=== PATIENT | female | born 1990 | race Caucasian/White ===

== ENCOUNTER 2023-02-08 18:04 | Inpatient (IN) ==
[2023-02-08] MEDS ORDERED: Lactated Ringers 1000 ml BAG 1,000 ML IV ONE (18:30)
[2023-02-08] MEDS ORDERED: Lidocaine 1% VIAL 10 MG/ML 30 ML VIAL INJ PRN (18:30)
[2023-02-08] MEDS ORDERED: Promethazine INJ(RESTRICTED) 25 MG/ML 1 ml VIAL IV PRN (18:30)
[2023-02-08] MEDS ORDERED: Buffered Lidocaine 1% SYRIN 1 ml INTRADERM ONE (18:30)
[2023-02-08] MEDS ORDERED: Dinoprostone 10 MG VAG.SUPP VAGINAL ONE (18:30)
[2023-02-08 19:44] LABS: Hemoglobin 13.8 g/dL (11.5-14.3); Mean Corpuscular Hemoglobin 30.2 pg (27-33); Mean Corpuscular Hgb Conc 34.4 g/dL (31-36); Mean Corpuscular Volume 87.6 fL (80-97); Red Blood Count 4.57 10^6/uL (3.63-4.92); Red Cell Distribution Width 14.6 % (12-17); White Blood Count 7.5 10^3/uL (3.8-11.8)
[2023-02-08 19:57] LABS: Albumin 3.4 g/dL (3.2-5.2); Albumin/Globulin Ratio 1.4 (1-3); Calcium 8.5 mg/dL (8.6-10.3); Creatinine, Serum 0.56 mg/dL (0.51-0.95); Globulin 2.4 g/dL (2-4); Potassium 3.5 mmol/L (3.5-5.0); Total Bilirubin 0.2 mg/dL (0.2-1.0); Total Protein 5.8 g/dL (6.4-8.9); eGFR CKD-EPI 122.7 (>60)
[2023-02-08 20:14] LABS: ABS Eosinophils 0.1 10^3/uL (0.0-0.5); ABS Lymphocytes 1.6 10^3/uL (1.0-4.8); ABS Monocytes 0.6 10^3/uL (0.0-0.9); ABS Neutrophils 5.2 10^3/uL (1.5-7.6); ABS Nucleated RBC 0.01 10^3/ul; Eosinophil % 1.1 %; Lymphocyte % 21.3 %; Mean Platelet Volume 10.3 fL (7.5-11.2); Nucleated Red Blood Cells % 0.2 /100 WBC (0.0-0.4); Platelet Count 110 10^3/uL (150-450)
[2023-02-09] MEDS ORDERED: Dinoprostone 10 MG VAG.SUPP VAGINAL ONE (08:45)
[2023-02-09 13:58] LABS: Urine Benzodiazepine Screen None Detected (None Detect); Urine Opiates Screen None Detected (None Detect)
[2023-02-09 19:32] LABS: ABS Eosinophils 0.1 10^3/uL (0.0-0.5); ABS Lymphocytes 1.8 10^3/uL (1.0-4.8); ABS Monocytes 0.6 10^3/uL (0.0-0.9); ABS Neutrophils 5.7 10^3/uL (1.5-7.6); ABS Nucleated RBC 0.01 10^3/ul; Eosinophil % 0.9 %; Hematocrit 40.6 % (35-45); Hemoglobin 14.1 g/dL (11.5-14.3); Lymphocyte % 22.2 %; Mean Corpuscular Hemoglobin 30.2 pg (27-33); Mean Corpuscular Hgb Conc 34.6 g/dL (31-36); Mean Corpuscular Volume 87.3 fL (80-97); Mean Platelet Volume 10.6 fL (7.5-11.2); Nucleated Red Blood Cells % 0.1 /100 WBC (0.0-0.4); Platelet Count 111 10^3/uL (150-450); Red Blood Count 4.66 10^6/uL (3.63-4.92); Red Cell Distribution Width 14.7 % (12-17); White Blood Count 8.3 10^3/uL (3.8-11.8)
[2023-02-09 19:47] LABS: Albumin 3.4 g/dL (3.2-5.2); Albumin/Globulin Ratio 1.4 (1-3); Calcium 8.6 mg/dL (8.6-10.3); Creatinine, Serum 0.72 mg/dL (0.51-0.95); Globulin 2.4 g/dL (2-4); Potassium 3.9 mmol/L (3.5-5.0); Total Bilirubin 0.3 mg/dL (0.2-1.0); Total Protein 5.8 g/dL (6.4-8.9); eGFR CKD-EPI 112.4 (>60)
[2023-02-09 19:53] LABS: Urine Creatinine Concentration 49.8 mg/dL (20.00-320.00)
[2023-02-09 20:22] LABS: Urine TP Creat Ratio 0.18 mg/mg
[2023-02-10] MEDS ORDERED: Oxytocin in LR 20,000 MILLI.UNIT/1,000 ML BAG IV SCH ×2 (10:25→17:55)
[2023-02-10] MEDS: Lactated Ringers 1000 ml BAG 1,000 ML IV SCH ×2 (10:45→20:11)
[2023-02-10] MEDS ORDERED: miSOPROStol 100 mcg TAB PO ONE (21:49)
[2023-02-11] MEDS ORDERED: miSOPROStol 100 mcg TAB PO ONE (04:21)
[2023-02-11] MEDS ORDERED: Oxytocin in LR 20,000 MILLI.UNIT/1,000 ML BAG IV SCH (12:00)
[2023-02-11] MEDS: Lactated Ringers 1000 ml BAG 1,000 ML IV SCH (13:15)
[2023-02-11 14:14] LABS: ABS Eosinophils 0.1 10^3/uL (0.0-0.5); ABS Lymphocytes 1.6 10^3/uL (1.0-4.8); ABS Monocytes 0.5 10^3/uL (0.0-0.9); ABS Neutrophils 5.6 10^3/uL (1.5-7.6); Eosinophil % 0.7 %; Hematocrit 39.9 % (35-45); Lymphocyte % 20.1 %; Mean Corpuscular Hemoglobin 30.5 pg (27-33); Mean Corpuscular Hgb Conc 35.2 g/dL (31-36); Mean Corpuscular Volume 86.7 fL (80-97); Mean Platelet Volume 9.9 fL (7.5-11.2); Platelet Count 113 10^3/uL (150-450); Red Cell Distribution Width 14.8 % (12-17); White Blood Count 7.8 10^3/uL (3.8-11.8)
[2023-02-11 14:32] LABS: Urine Creatinine Concentration 33.01 mg/dL (20.00-320.00)
[2023-02-11 14:49] LABS: Albumin 3.6 g/dL (3.2-5.2); Potassium 4.5 mmol/L (3.5-5.0); Total Bilirubin 0.3 mg/dL (0.2-1.0)
[2023-02-11 14:55] LABS: Albumin/Globulin Ratio 1.8 (1-3); Creatinine, Serum 0.58 mg/dL (0.51-0.95); Total Protein 5.6 g/dL (6.4-8.9); Uric Acid 4.9 mg/dL (2.3-6.6); eGFR CKD-EPI 121.7 (>60)
[2023-02-11 15:19] LABS: Urine TP Creat Ratio 0.18 mg/mg
[2023-02-11] MEDS ORDERED: OBEPIDURAL (200 ML) 200 ML EPIDURAL ONE (21:23)
[2023-02-11] MEDS ORDERED: Lidocaine 1.5% EPI 1:200,000 30 ML SDV ONE (21:23)
[2023-02-11] MEDS ORDERED: Lactated Ringers 1000 ml BAG 500 ML IV PRN (22:31)
[2023-02-11] MEDS ORDERED: Sodium Citrate/Citric Acid LIQ 15 ML UDC PO PRN (22:31)
[2023-02-11] MEDS ORDERED: Lactated Ringers 1000 ml BAG 1,000 ML IV ONE (22:31)
[2023-02-11] MEDS ORDERED: Phenylephrine 40 mcg/mL 10mL (400mcg) SYRINGE IV PUSH PRN (22:31)
[2023-02-11] MEDS ORDERED: Lactated Ringers 1000 ml BAG 1,000 ML IV SCH (23:00)
[2023-02-11 23:27] LABS: Urine Appearance Clear; Urine Bilirubin Negative (Negative); Urine Blood 1+ (Negative); Urine Color Yellow; Urine Glucose Negative (Negative); Urine Ketones Negative (Negative); Urine Nitrite Negative (Negative); Urine Protein 1+(30 mg/dL) (Negative); Urine Specific Gravity 1.014 (1.002-1.030); Urine Urobilinogen Negative (Negative)
[2023-02-11 23:31] LABS: Urine Bacteria Absent (Absent); Urine Red Blood Cell 2+(6-10/hpf) (Absent); Urine Squamous Epithelial Cell Present (Absent); Urine White Blood Cell Trace(0-5/hpf) (Absent)
[2023-02-12] MEDS: Lactated Ringers 1000 ml BAG 1,000 ML IV SCH (02:12)
[2023-02-12] MEDS: OBEPIDURAL (200 ML) 200 ML EPIDURAL SCH ×2 (02:24→12:27)
[2023-02-12] MEDS ORDERED: Ondansetron 4 mg VIAL 2 MG/ML 2 ml VIAL IV ONE (04:00)
[2023-02-12] MEDS ORDERED: Oxytocin in LR 20,000 MILLI.UNIT/1,000 ML BAG IV SCH ×2 (07:15→13:15)
[2023-02-12] MEDS ORDERED: Witch Hazel PAD JAR TOPICAL PRN (13:12)
[2023-02-12] MEDS ORDERED: Glycerin ADULT 2.4 gm SUPP PR PRN (13:12)
[2023-02-12] MEDS ORDERED: RHO D Immune Globulin (HUMAN) 300 MCG = 1,500 I.U. INJ IM ONE (13:53)
[2023-02-12] MEDS: Dibucaine 1% OINT 28.35 GM TUBE PR PRN ×2 (14:03→23:58)
[2023-02-13 07:37] LABS: ABS Eosinophils 0.2 10^3/uL (0.0-0.5); ABS Lymphocytes 1.6 10^3/uL (1.0-4.8); ABS Monocytes 0.7 10^3/uL (0.0-0.9); ABS Neutrophils 7.3 10^3/uL (1.5-7.6); ABS Nucleated RBC 0.01 10^3/ul; Eosinophil % 1.6 %; Hematocrit 32.2 % (35-45); Hemoglobin 11.2 g/dL (11.5-14.3); Lymphocyte % 16.7 %; Mean Corpuscular Hemoglobin 30.6 pg (27-33); Mean Corpuscular Hgb Conc 34.8 g/dL (31-36); Mean Corpuscular Volume 87.8 fL (80-97); Nucleated Red Blood Cells % 0.1 /100 WBC (0.0-0.4); Platelet Count 106 10^3/uL (150-450); Red Blood Count 3.67 10^6/uL (3.63-4.92); Red Cell Distribution Width 14.5 % (12-17); White Blood Count 9.8 10^3/uL (3.8-11.8)
[2023-02-13 12:42] VITALS: BP 137/98
== END 2023-02-13 16:12 | disposition home or self-care (01) | DRG 560 ==
LOC: MCHOBOUT 18:04 → MCHOB 18:34
PROVIDERS: ADMIT Registered Nurse; ATTEND Registered Nurse